=== PATIENT | male | born 1940 | race Caucasian/White ===

== ENCOUNTER 2018-07-08 00:41 | Outpatient (CLI) | payer MEDICARE, SELFPAY ==
--- NOTE | 2018-07-08 09:50 | MERGEMPI_ITS ---
*[facility]* *[facility]* [address] [place] [address] Myocardial Perfusion Imaging - SPECT Regadenoson Date of study: 07/08/2018 *PATIENT PRESENTATION* Height: 177.8cm (70in) Blood Pressure: Weight: 147.7kg (325lb) BSA: 2.78m^2 Referring physician: Price Teixeira Ordering physician: Virgilio Winters MD Impressions: Normal study after pharmacologic stress. Summary: 1. Myocardial perfusion imaging: No myocardial perfusion defects noted. 2. The calculated left ventricular ejection fraction after stress: 52%. LV global systolic function is low normal. No left ventricular regional motion abnormality. Indication: R07.9. History: REASON FOR TESTING: CHEST PAIN, NOT TYPICAL REPORTED FROM . OCCURS MOSTLY IN THE EVENING, MID CHEST. THE PAIN IS DESCRIBED ACHING, DOES NOT LAST LONG, AND GOES AWAY ON IT'S OWN. PT REPORTS A LOT OF STRESS RECENTLY R/T HIS SON. PMH: CHEST PAIN, OA RIGHT KNEE, MILD COGNITIVE IMPAIRMENT, ESSENTIAL TREMOR, ALLERGIC RHINITIS, ADJUSTMENT DISORDER WITH DEPRESSED M,OOD, CHRONIC HOARSNESS, COPD, OAS, CATARACTS, OBESITY, EDEMA, POLYCYTHEMIA, LUMBAGO, ERECTILE DYSFUNCTION, MAJOR DEPRESSION, HYPERLIPIDEMIA, HYPERTENSION. FAMILY HX: MOTHER- OF BRAIN ANURYSM. SMOKING: HX OF SMOKING X 50 YEARS, QUIT 6 YEARS AGO EXCERCISE: DAILY USE OF EXCERCISE BIKE X 3-5 MINS. PMH: COPD. Asthma. Risk factors: NO AVAILABLE CHOLESTEROL DATA. Family history of coronary artery disease. Hypertension. Obesity. Dyslipidemia. ALLERGIES: MARIJUANA, LIPITOR. SIMVASTATIN. MEDICATIONS: AMLODIPINE BESYLATE 5 MG DAILY, LISINOPRIL 40 MG DAILY, TORSEMIDE 20 MG BID, AMBIEN 10 MG HS, IBUPROFEN 600 MG TID PRN, ASPIRIN 81 MG DAILY, PROAIR HFA 108 MCG/ACT 2 PUFFS EVERY 4-6 HRS NEEDED, FULTICASONE PROPIONATE 50 MCG/ACT 2 SPRAYS EACH NOSTRIL DAILY. CICLODAN 0.77% CREAM APPLY DAILY, ATROVENT HFA 17 MCG/ACT 2 PUFFS 4X/DAY NEEDED, ANORO ELLIPTA 62.5-25 MCG/INH 1 INHALLATION DAILY. Imaging Technique: Protocol: Regadenoson. Acquisition: Gated SPECT; 1 day - rest/stress. The patient was imaged in the supine position. Attenuation correction used. Isotope administration: - Rest. Tc[99m]-sestamibi. Dose: 15.2mCi. Injection time: 08:45 AM. Injection to stress time: 00:45. - Stress. Tc[99m]-sestamibi. Dose: 47mCi. Injection time: 11:05 AM. 1-2 min before end of exercise Baseline ECG: LAST EKG 06/30/18- SINUS RHYTHM, RBBB. TODAY'S EKG- SINUS RHYTHM, 1ST DEGREE AVB, RBBB. Stress protocol: +--------+--+ + + !Stage !HR!BP (mmHg) !Comments ! +--------+--+ + + !Baseline!66!142/78 (99) ! ! +--------+--+ + + !1 min !70!142/86 (105)!Inject Regadenoson.! +--------+--+ + + !3 min !78!154/72 (99) ! ! +--------+--+ + + !6 min !73!144/78 (100)! ! +--------+--+ + + * Stress results: The rate-pressure product for the peak heart rate and blood pressure was [id number] Hg/min. Stress ECG: LEXISCAN TESTING ENDED IN 6 MINS, VS RETURNED TO BASELINE. MAX HR WAS 85, WITH A HYPERTENSIVE BLOOD PRESSURE RESPONSE. ECTOPY: NONE NOTED. ANGINA:C/O NAUSEA ONLY, NO CHEST PAIN OR PRESSURE. ISCHEMIA: NO ISCHEMIC CHANGES NOTED. Myocardial perfusion: Imaging information: gated. Left ventricular size is normal. No myocardial perfusion defects noted. Ventricular Function (Wall Motion): The calculated left ventricular ejection fraction after stress: 52%. LV global systolic function is low normal. No left ventricular regional motion abnormality. Study data: Price Teixeira MD supervised and was readily available during the procedure. This study was interpreted by [facility]. Study status: Routine. Consent: The risks, benefits, and alternatives to the procedure were explained to the patient and informed consent was obtained. Procedure: Initial setup. A baseline ECG was recorded. Surface ECG leads and manual cuff blood pressure measurements were monitored. Heart sounds: Normal. Lung sounds: Normal. Regadenoson stress test. Stress testing was performed, with regadenoson by intravenous bolus, for a total dose of 0.4mgover 10.00sec, followed by a 5ml saline flush. The infusion was terminated due to per protocol. The patient was unable to exercise due to leg, joint, or back pain. Study completion: All catheters inserted during the procedure were removed. The patient tolerated the procedure well and was discharged from the lab. Discharge: The patient left the laboratory in stable condition. Birthdate: Patient birthdate: 1940. Sex: Gender: male. Study date: Study date: 07/08/2018. Study time: 12:30 PM. Signature Documentation: - The imaging portion of this study was interpreted by Nuclear Sausage Grinder Price Teixeira MD. - The imaging portion of this study was interpreted by Nuclear Radiologist Sylvia Smith MD. - The Stress ECG portion of this study was interpreted by Price Teixeira MD. Electronically signed by Price Teixeira 07/08/2018 14:12
[2018-07-08] MEDS: Regadenoson 0.4 MG/5 ML SYR IVP (11:19)
== END 2018-07-08 01:01 ==
PROVIDERS: PCP Internal Medicine; Visit Provider Internal Medicine
DX: R07.9 Chest pain, unspecified (principal); E78.5 Hyperlipidemia, unspecified; I10 Essential (primary) hypertension; J44.9 Chronic obstructive pulmonary disease, unspecified; Z87.891 Personal history of nicotine dependence; G25.0 Essential tremor
CPT/HCPCS: 78452; 93016; 93018; 93017; J2785

== ENCOUNTER 2019-08-24 15:45 | Outpatient (REF) | payer OTHER, SELFPAY ==
[2019-08-24 19:12] LABS: HCT 53.1 % (40.0-50.0); HGB 17.2 g/dL (13.5-17.5); Mean Corp. HGB Concentration 32.4 g/dL (32.0-36.0); Mean Corpuscular Volume 92.5 fL (80-95); Mean Platelet Volume 10.2 fL (8.0-11.0); Platelet Count 208 x1000/uL (130-400); RBC 5.74 m/cumm (4.50-6.00); RBC Distribution Width 13.6 % (11.8-14.1)
[2019-08-24 19:33] LABS: Anion Gap 5.5 mmol/L (3-11); BUN 12 mg/dL (7-18); CO2 31.5 mmol/L (21.0-32.0); CREATININE 0.69 mg/dL (0.70-1.30); Calcium 9.3 mg/dL (8.5-10.1); Chloride 100 mmol/L (98-107); Glucose 92 mg/dL (70-100); Potassium 5.1 mmol/L (3.5-5.1); Sodium 137 mmol/L (136-145)
== END 2019-08-24 16:05 ==
LOC: NCHCN 15:45
PROVIDERS: PCP Internal Medicine; Visit Provider Internal Medicine
DX: J44.1 Chronic obstructive pulmonary disease with (acute) exacerbation (principal); G47.33 Obstructive sleep apnea (adult) (pediatric); M54.5 Low back pain; E66.9 Obesity, unspecified
CPT/HCPCS: 80048; 85027

== ENCOUNTER 2019-11-17 13:38 | Outpatient (REF) | payer OTHER, SELFPAY | END 2019-11-17 13:58 | LOC: NCHCN 13:38 | PROVIDERS: PCP Internal Medicine; Visit Provider Physician Assistant | DX: L97.919 Non-pressure chronic ulcer of unspecified part of right lower leg with unspecified severity (principal) | CPT/HCPCS: 87077; 87070; 87186; 87205 ==

== ENCOUNTER 2019-12-12 14:35 | Outpatient (REF) | payer OTHER, SELFPAY ==
[2019-12-12 19:48] LABS: Anion Gap 5.3 mmol/L (3-11); BUN 18 mg/dL (7-18); CO2 32.7 mmol/L (21.0-32.0); CREATININE 0.66 mg/dL (0.70-1.30); Calcium 8.6 mg/dL (8.5-10.1); Chloride 103 mmol/L (98-107); Glucose 102 mg/dL (74-106); Potassium 5.1 mmol/L (3.5-5.1); Sodium 141 mmol/L (136-145)
[2019-12-12 19:56] LABS: Hemoglobin A1C 6.2 % (3.8-5.6)
== END 2019-12-12 14:55 ==
LOC: NCHCN 14:35
PROVIDERS: PCP Internal Medicine; Visit Provider Physician Assistant
DX: E11.9 Type 2 diabetes mellitus without complications (principal)
CPT/HCPCS: 80048; 83036

== ENCOUNTER 2021-02-03 16:00 | Outpatient (REF) | payer OTHER, SELFPAY ==
[2021-02-03 19:01] LABS: MCH 30.3 pg (27.0-33.0); MCHC 31.1 % (32.0-36.0); MCV 97.2 fL (80-95); MPV 10.3 fL (8.0-11.0); Platelet Count 172 10^3/uL (130-400); RBC 5.78 10^6/uL (4.36-5.78); RDW 12.6 % (11.8-14.1); RDW-SD 45.1 fL; WBC 7.85 10^3/uL (4.4-10.8)
[2021-02-03 19:03] LABS: HGB 17.5 g/dL (13.5-17.5)
[2021-02-03 19:04] LABS: HCT 56.2 % (40.0-50.0)
[2021-02-03 19:10] LABS: Anion Gap 1.4 mmol/L (3-11); BUN 16 mg/dL (7-18); CO2 37.6 mmol/L (21.0-32.0); CREATININE 0.7 mg/dL (0.70-1.30); Calcium 9.3 mg/dL (8.5-10.1); Chloride 99 mmol/L (98-107); Glucose 118 mg/dL (74-106); Sodium 138 mmol/L (136-145)
== END 2021-02-03 16:01 | disposition home or self-care (01) ==
LOC: NCHCN 16:00
PROVIDERS: PCP Internal Medicine; Visit Provider Internal Medicine
DX: I10 Essential (primary) hypertension (principal); R73.03 Prediabetes; R60.0 Localized edema; D75.1 Secondary polycythemia; G31.84 Mild cognitive impairment of uncertain or unknown etiology
CPT/HCPCS: 80048; 85027